=== PATIENT | female | born 1955 | race Two or more races ===

== ENCOUNTER 2018-12-30 09:13 | Outpatient (CLI) | payer OTHER | END 2018-12-30 09:20 | disposition home or self-care (01) | LOC: MAMO-SONO 09:13 | DX: Z12.31 Encounter for screening mammogram for malignant neoplasm of breast (principal); Z87.898 Personal history of other specified conditions; Z13.820 Encounter for screening for osteoporosis; N64.4 Mastodynia; E55.9 Vitamin D deficiency, unspecified; E78.89 Other lipoprotein metabolism disorders; F41.8 Other specified anxiety disorders; I10 Essential (primary) hypertension; K21.9 Gastro-esophageal reflux disease without esophagitis; M54.14 Radiculopathy, thoracic region; M54.5 Low back pain; M89.8X8 Other specified disorders of bone, other site ==

== ENCOUNTER → 2019-01-04 | Outpatient (CLI) | payer OTHER | END | disposition home or self-care (01) | LOC: NUCLEAR 11:00 | DX: M81.0 Age-related osteoporosis without current pathological fracture (principal) ==

== ENCOUNTER 2020-06-10 08:18 | Outpatient (CLI) | payer OTHER | END 2020-06-10 08:51 | disposition home or self-care (01) | LOC: RAD 08:18 | PROVIDERS: ATTEND Internal Medicine | DX: I10 Essential (primary) hypertension (principal); M54.5 Low back pain; M54.14 Radiculopathy, thoracic region; M89.8X8 Other specified disorders of bone, other site; F17.218 Nicotine dependence, cigarettes, with other nicotine-induced disorders; E55.9 Vitamin D deficiency, unspecified; K21.9 Gastro-esophageal reflux disease without esophagitis; F41.8 Other specified anxiety disorders; E78.89 Other lipoprotein metabolism disorders ==

== ENCOUNTER 2021-02-02 10:20 | Outpatient (CLI) | payer OTHER | END 2021-02-02 11:00 | disposition home or self-care (01) | LOC: RAD 10:20 | PROVIDERS: ATTEND Internal Medicine | DX: I10 Essential (primary) hypertension (principal); E78.89 Other lipoprotein metabolism disorders; F41.8 Other specified anxiety disorders; K21.9 Gastro-esophageal reflux disease without esophagitis; E55.9 Vitamin D deficiency, unspecified; M54.14 Radiculopathy, thoracic region; M54.5 Low back pain; F17.200 Nicotine dependence, unspecified, uncomplicated; F17.218 Nicotine dependence, cigarettes, with other nicotine-induced disorders ==

== ENCOUNTER 2021-06-06 10:57 | Outpatient (CLI) | payer OTHER | END 2021-06-06 11:09 | disposition home or self-care (01) | LOC: MAMO-SONO 10:57 | PROVIDERS: ATTEND Internal Medicine | DX: R92.0 Mammographic microcalcification found on diagnostic imaging of breast (principal); N64.59 Other signs and symptoms in breast; Z12.31 Encounter for screening mammogram for malignant neoplasm of breast; E55.9 Vitamin D deficiency, unspecified; E78.89 Other lipoprotein metabolism disorders; F41.8 Other specified anxiety disorders; I10 Essential (primary) hypertension; K21.00 Gastro-esophageal reflux disease with esophagitis, without bleeding; M54.14 Radiculopathy, thoracic region; M89.8X9 Other specified disorders of bone, unspecified site; F17.298 Nicotine dependence, other tobacco product, with other nicotine-induced disorders ==

== ENCOUNTER → 2021-06-06 12:00 | Outpatient (CLI) | payer OTHER | END | disposition home or self-care (01) | LOC: PPH VACUNA 12:00 | PROVIDERS: ATTEND Emergency Medicine Pediatric Emergency Medicine | DX: Z23 Encounter for immunization (principal) ==

== ENCOUNTER → 2022-06-18 | Outpatient (CLI) | payer OTHER | END | disposition home or self-care (01) | LOC: NUCLEAR 13:30 | PROVIDERS: ATTEND Internal Medicine | DX: M81.0 Age-related osteoporosis without current pathological fracture (principal) ==

== ENCOUNTER 2022-09-04 08:25 | Outpatient (CLI) | payer OTHER | END 2022-09-04 08:43 | disposition home or self-care (01) | LOC: MAMO-SONO 08:25 | PROVIDERS: ATTEND Internal Medicine | DX: N60.11 Diffuse cystic mastopathy of right breast (principal) ==

== ENCOUNTER 2024-07-07 09:17 | Outpatient (CLI) | payer OTHER | END 2024-07-07 09:25 | disposition home or self-care (01) | LOC: MAMO-SONO 09:17 | PROVIDERS: ATTEND Internal Medicine | DX: N60.11 Diffuse cystic mastopathy of right breast (principal); Z12.31 Encounter for screening mammogram for malignant neoplasm of breast ==

== ENCOUNTER → 2024-07-19 09:43 | Outpatient (CLI) | payer OTHER | END | disposition home or self-care (01) | LOC: NUCLEAR 09:43 | PROVIDERS: ATTEND Internal Medicine | DX: M89.9 Disorder of bone, unspecified (principal); M81.0 Age-related osteoporosis without current pathological fracture ==